=== PATIENT | female | born 1980 | race Caucasian/White ===

== ENCOUNTER 2016-08-07 14:40 | Inpatient (IN) | payer OTHER ==
[~2016-08-07] VITALS: Ht 160 cm; Wt 83.9 kg
[2016-08-07 15:48] VITALS: BP 131/74
[2016-08-07 17:15] LABS: ABSOLUTE BASOPHIL COUNT 0 /CUMM (0.0-0.2); ABSOLUTE EOSINOPHIL COUNT 0.1 /CUMM (0.0-0.7); ABSOLUTE GRANULOCYTE CT 9.3 /CUMM (1.4-6.5); ABSOLUTE MONOCYTE COUNT 0.9 /CUMM (0.10-0.60); BASOPHIL % 0.4 % (0.0-2.0); EOSINOPHIL % 0.8 % (0-5); GRANULOCYTE % 75.4 % (42.2-75.2); HEMATOCRIT 35.9 % (37-47); MEAN CORPUSCULAR HGB 32.1 PG (27.0-31.0); MEAN CORPUSCULAR HGB CONC 34.3 G/DL (33.0-37.0); MEAN CORPUSCULAR VOLUME 93.4 FL (81.0-99.0); MEAN PLATELET VOLUME 11.6 FL (7.4-10.4); PLATELET COUNT 211 /CUMM (130-400); RBC DISTRIBUTION WIDTH 13.9 % (11.5-14.5); RED BLOOD CELL CT 3.84 /CUMM (4.20-5.40); WHITE BLOOD CELL COUNT 12.4 /CUMM (4.8-10.8)
--- NOTE | 2016-08-07 22:57 | History & Physical ---
General Information and HPI MD Statement: I have seen and personally examined MONSERRAT BRIDGES and documented this H&P. The patient is a 36 year old female at 40 weeks gestation who presented with a chief complaint of ROM. 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 Now asking for epidural. 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 EENTM: Denies: blurred vision, double vision, visual changes. Cardiovascular: Denies: chest pain, palpitations. Respiratory: Denies: short of breath. GI: Denies: nausea, vomiting. Neurological/Psychological: Denies: anxiety, depressed. Exam & Diagnostic Data Last 24 Hrs of Vital Signs/I&O vss Vital Signs Date Time Temp Pulse Resp B/P Pulse O2 O2 Flow FiO2 Ox Delivery Rate 08/07 1548 131/74 Intake & Output 08/07 1600 08/07 0800 08/07 0000 Intake Total Output Total Balance Patient 185 lb Weight Obstetric Exam Wgt Gained During : 45# Pelvimetry: seems adequate Dilation (cm): 5 Effacement (%): 100 Station: -2 Membranes: SROM Fluid: light meconium Fundal Height (cm): 40 Multiple Gestation? No Contractions: Q4 min #1 - FHR Baseline: 125 Category: 1 Estimated Weight: 3800g Presentation: vtx Patient for Induction? No Physical Exam General Appearance Alert, Oriented X3, Cooperative, Mild Distress Cardiovascular Regular Rate Lungs Clear to Auscultation Abdomen Soft Neurological Normal Speech, Strength at 5/5 X4 Ext, Normal Tone, Reflexes 2+ Extremities No Edema Breasts implants Labs Blood Type & Rh: A pos Antibody Screen: neg Hct/Hgb & Platelets #1: 33.4/11.2/230 Hct/Hgb & Platelets #2: 33.8/10.9/256 Rubella: imm VDRL #1: NR VDRL #2: NR HbsAg: NR HIV #1: NR HIV #2 NR 1 Hr P Group B Strep: NEG Initial Ultrasound: 01/15/2016 10W 4D Anatomy Ultrasound: 03/23/2016 NORMAL Ultrasound for EFW: 06/17/2015 65%TILE Genetic Testing: INDETERMINANT FRAGIL X CARRIER NOT SIGNIFIGANT FOR THIS Last 24 Hrs of Labs/Tyson: Laboratory Tests 08/07/16 1800: Urine Color YEL, Urine Clarity HAZY H, Urine pH 6.5, Ur Specific [place] <= 1.005, Urine Protein NEG, Urine Ketones NEG, Urine Nitrite NEG, Urine Bilirubin NEG, Urine Urobilinogen 0.2, Ur Leukocyte Esterase NEG, Ur Microscopic SEDIMENT EXAMINED, Urine RBC FEW H, Urine WBC RARE, Ur Epithelial Cells PACKD H, Urine Hemoglobin SMALL H, Urine Glucose NEG 08/07/16 1615: CBC w Diff NO MAN DIFF REQ, RBC 3.84 L, MCV 93.4, MCH 32.1 H, RDW 13.9, MPV 11.6 H, Gran % 75.4 H, Lymphocytes % 16.1 L, Monocytes % 7.3, Eosinophils % 0.8, Basophils % 0.4, Absolute Granulocytes 9.3 H, Absolute Lymphocytes 2.0, Absolute Monocytes 0.9 H, Absolute Eosinophils 0.1, Absolute Basophils 0, PUBS MCHC 34.3 Assessment/Plan As Ranked By This Provider Problem List: 1. Core Measures/Miscellaneous Venous Thromboembolism VTE Risk Factors: / VTE Contraindications: No Contraindications VTE Diagnosis: No Beta Otto Is Beta Otto a Home Med? No Antibiotics Is Patient on Antibiotics? No Attending MD Review Statement Attending Statement Attending MD Statement: examined this patient, discussed with family, discussed w/nursing Attending Assessment/Plan: iup AT TERM srom THIN mEC PLAN epidural anasthesia EXPECTANT MANAGEMENT
--- NOTE | 2016-08-08 09:08 | PN- OBGYN ---
Subjective Subjective: feeling ok with epidural sleps some time Review of Systems Constitutional: Denies: chills, fever. EENTM: Denies: blurred vision, double vision, visual changes. Cardiovascular: Denies: chest pain, palpitations. Respiratory: Denies: short of breath. Gastrointestinal: Denies: nausea, vomiting. Neurological/Psychological: Denies: anxiety, depressed. Objective Last 24 Hrs of Vital Signs/I&O tmax 100.9 Vital Signs Date Time Temp Pulse Resp B/P Pulse O2 O2 Flow FiO2 Ox Delivery Rate 08/08 0552 100.8 08/07 1548 131/74 Physical Exam General Appearance Alert, Oriented X3, Cooperative, Mild Distress Cardiovascular Regular Rate Lungs Clear to Auscultation Abdomen Soft Obstetric Exam Dilation (cm): 8 Effacement (%): 90 Station: -1 Membranes: SROM Fluid: light meconium Multiple Gestation? No Contractions: q 3-4 MIN 120 mONTEVIDEO UNITS Infant #1 - FHR Baseline: 125 Category: 1 Estimated Weight: 3800g Presentation: vtx Current Medications: Current Medications Sig/Vera Start time Last Medication Dose Route Stop Time Status Admin Acetaminophen 1,000 MG ONCE ONE 08/08 06 DC 08/08 N/A 1 UNIT IV 08/08 0614 0552 Butorphanol Tartrate 1 MG Q4P PRN 08/07 2044 AC 08/07 IM 2036 Butorphanol Tartrate 1 MG Q4P PRN 08/07 204 AC 08/07 IV 203 Cefazolin Sodium 2 GM ONCE ONE 08/08 899 UNVr 08/08 N/A 1 UNIT IV 08/08 0929 0854 Lactated Ringer's 1,000 ML Q8H 08/07 1530 AC 08/08 IV 0552 Oxytocin 30 UNITS PER PROTOCL 08/08 09 UNVr 08/08 Lactated Ringer's 500 ML IV 0800 Last 24 Hrs of Labs/Tyson: Laboratory Tests 08/07/16 1800: Urine Color YEL, Urine Clarity HAZY H, Urine pH 6.5, Ur Specific [place] <= 1.005, Urine Protein NEG, Urine Ketones NEG, Urine Nitrite NEG, Urine Bilirubin NEG, Urine Urobilinogen 0.2, Ur Leukocyte Esterase NEG, Ur Microscopic SEDIMENT EXAMINED, Urine RBC FEW H, Urine WBC RARE, Ur Epithelial Cells PACKD H, Urine Hemoglobin SMALL H, Urine Glucose NEG 08/07/16 1615: CBC w Diff NO MAN DIFF REQ, RBC 3.84 L, MCV 93.4, MCH 32.1 H, RDW 13.9, MPV 11.6 H, Gran % 75.4 H, Lymphocytes % 16.1 L, Monocytes % 7.3, Eosinophils % 0.8, Basophils % 0.4, Absolute Granulocytes 9.3 H, Absolute Lymphocytes 2.0, Absolute Monocytes 0.9 H, Absolute Eosinophils 0.1, Absolute Basophils 0, PUBS MCHC 34.3 Assessment/Plan Assessment/Plan PT HAS BEEN 8 CM FOR SEVERAL HOURS WILL START PITOCIN SINCE CONTRACTIONS ARE SUB OPTIMAL WILL START ANTIBIOTS SINCE PT HAS ROM >18 HOURS AND LOW GRADE TEMP. Problem List: 1. Attending MD Review Statement Attending Statement Attending MD Statement: examined this patient, discussed with family, discussed w/nursing
--- NOTE | 2016-08-08 13:06 | Operative Report ---
Operative/Inv Procedure Report Surgery Date: 08/08/16 Name of Procedure: primary L/T C/S Pre-Operative Diagnosis: FTP Post-Operative Diagnosis: FTP and chorioamnionitis Estimated Blood Loss: 350 Surgeon/Carbon Furnace Operator: CHRISSY VALERIO,Bernard Mehta MD Anesthesia: general endotracheal tube Monitors: fhr 145 bpm Specimens: placenta and private cord collection Operative/Procedure Note Note: After the induction of general anesthesia the patient was placed in the left lateral tilt position Sanford catheter was placed and heart rate was noted to be 144 bpm after testing for adequacy of anesthesia a Pfannenstiel incision was made in the skin and carried down sharply to the fascia hemostasis was achieved with electrocautery. The Fascia was incised in the midline sharply and the incision was carried out laterally sharply. The fascia was divided from the underlying rectus muscles in the superior and inferior direction sharply. The rectus muscle bundles were divided in the midline sharply. A bladder flap was created on the lower uterine segment. The lower uterine segment was entered in the midline sharply and the incision was carried out laterally bluntly. Infant was delivered through thin meconium stained amnionic fluid vertex position atraumatically cord was doubly clamped and cut and the was handed to the pediatric attendant. The placenta was manually extracted and the interior of the uterus was wiped clean with wet laps. The uterus was externalized. The uterine incision was closed in 2 layers the first a running locking stitch the second an imbricating over the first 0 Polysorb sutures were used after checking for hemostasis the uterus was returned to its normal anatomic position the abdominal/perineal cavity was irrigated copiously once again the uterus was checked for hemostasis which was judged to be excellent. Because of excessive bogginess the pt was given one dose of methergine followed by one amp of Henabate with good results.The parietal peritoneum was reapproximated in a simple running fashion with 0 Polysorb suture, subfascial planes were checked for hemostasis which was judged to be excellent. Fascia was then closed with 2 simple running sutures overlapping in the midline. Subcuticular tissues were irrigated copiously and hemostasis was achieved with electrocautery. A subcuticular Emi's fascia which was placed in a simple running fashion of 2-0 Polysorb. The skin was closed with memo. Her uterus was expressed of a small amount of blood. The only drain left at the end of the procedure was a Sanford catheter.
--- NOTE | 2016-08-08 13:09 | PN- OBGYN ---
Surgical Brief Attending Note Brief Attending Note: Pt examined now after more than one hour of adequate contractions with an IUP catheter on pitocin there was no cervical change therefore a primary C/S was planned
[2016-08-09 06:38] LABS: ABSOLUTE BASOPHIL COUNT 0 /CUMM (0.0-0.2); ABSOLUTE EOSINOPHIL COUNT 0.1 /CUMM (0.0-0.7); ABSOLUTE GRANULOCYTE CT 19.9 /CUMM (1.4-6.5); ABSOLUTE LYMPH COUNT 1.6 /CUMM (1.2-3.4); ABSOLUTE MONOCYTE COUNT 1.2 /CUMM (0.10-0.60); BASOPHIL % 0 % (0.0-2.0); EOSINOPHIL % 0.3 % (0-5); GRANULOCYTE % 87.6 % (42.2-75.2); MEAN CORPUSCULAR HGB CONC 33.5 G/DL (33.0-37.0); MEAN CORPUSCULAR VOLUME 95.5 FL (81.0-99.0); MEAN PLATELET VOLUME 11.1 FL (7.4-10.4); PLATELET COUNT 163 /CUMM (130-400); RBC DISTRIBUTION WIDTH 13.9 % (11.5-14.5); RED BLOOD CELL CT 2.94 /CUMM (4.20-5.40)
[2016-08-09 07:01] LABS: WHITE BLOOD CELL COUNT 22.7 /CUMM (4.8-10.8)
--- NOTE | 2016-08-09 09:00 | PN- Post Delivery/GYN ---
Subjective Subjective: feeling ok c/o incisional pain Review of Systems Constitutional: Denies: chills, fever. EENTM: Denies: blurred vision, double vision. Cardiovascular: Denies: chest pain, edema, palpitations. Respiratory: Denies: cough, short of breath. Gastrointestinal: Denies: diarrhea, nausea, vomiting. Genitourinary: Denies: dysuria, frequency. Musculoskeletal: Denies: back pain. Neurological/Psychological: Denies: depressed, headache, paresthesia. Objective Last 24 Hrs of Vital Signs/I&O vss Vital Signs Date Time Temp Pulse Resp B/P Pulse O2 O2 Flow FiO2 Ox Delivery Rate 08/08 1705 Room Air 08/08 1514 99.1 08/08 1240 102.8 Physical Exam General Appearance Alert, Oriented X3, Cooperative, Mild Distress Cardiovascular Regular Rate Lungs Clear to Auscultation Abdomen Soft, incision clean and dry Neurological Normal Speech, Normal Tone Extremities 1+ pedal Pelvic (FEMALE) lochia sanganous Current Medications: Current Medications Sig/Vera Start time Last Medication Dose Route Stop Time Status Admin Acetaminophen 1,000 MG ONCE ONE 08/08 1300 DC 08/08 N/A 1 UNIT IV 08/08 1314 1240 Acetaminophen 650 MG Q4P PRN 08/08 1245 AC PO Bisacodyl 10 MG DAILY NEEDED PRN 08/08 1245 AC DE Butorphanol Tartrate 1 MG Q4P PRN 08/07 2045 DC 08/07 IM 203 Butorphanol Tartrate 1 MG Q4P PRN 08/07 2045 DC 08/07 IV 2037 Carboprost 250 MCG .[STAT] 08/08 1245 DC Tromethamine IM 08/08 1246 Cefazolin Sodium 1,000 MG .STK-MED ONE 08/08 1058 DC IM 08/08 1059 Cefazolin Sodium 2 GM ONCE ONE 08/08 0900 DC 08/08 N/A 1 UNIT IV 08/08 0929 0854 Citric Acid/Sodium 30 ML ONE TIME CBC 08/08 1045 DC 08/08 Citrate PO 08/08 1100 1038 Dextrose/Lactated 1,000 ML Q8H 08/08 1245 AC 08/09 Ringer's IV 0223 Diphenhydramine HCl 50 MG Q6P PRN 08/08 1245 AC IM Fentanyl Citrate 100 MCG .STK-MED ONE 08/08 1047 DC IM 08/08 1048 Hydromorphone HCl 50 MG Q24H PRN 08/08 1415 AC 08/08 Sodium Chloride 45 ML IV 1500 Hydroxyzine HCl 50 MG AT BEDTIME NEED.. 08/09 0000 AC PO 08/12 0001 Ibuprofen 600 MG Q6P PRN 08/08 1245 AC PO Ibuprofen 800 MG Q6P PRN 08/08 1245 AC PO Ketorolac 30 MG ONCE PRN 08/09 0545 AC 08/09 Tromethamine IV 0540 Ketorolac 30 MG ONCE PRN 08/08 2230 AC 08/08 Tromethamine IV 2232 Lactated Ringer's 1,000 ML Q8H 08/07 1530 DC 08/08 IV 0552 Magnesium Hydroxide 30 ML DAILY NEEDED PRN 08/08 1245 AC PO 08/11 1246 Methylergonovine 0.2 MG .[STAT] 08/08 1245 DC Maleate IM 08/08 1246 Midazolam HCl 5 MG .STK-MED ONE 08/08 1047 DC IM 08/08 1048 Morphine Sulfate 10 MG .STK-MED ONE 08/08 1048 DC IV 08/08 1049 Naloxone HCl 0.2 MG .[STAT] 08/08 1245 DC IV 08/08 1246 Oxycodone/ 1 TAB Q4P PRN 08/08 1245 AC Acetaminophen PO Oxycodone/ 2 TAB Q4P PRN 08/08 1245 AC Acetaminophen PO Oxytocin 20 UNITS Q8H 08/08 1245 DC 08/08 Lactated Ringer's 1,000 ML IV 08/08 2044 1225 Oxytocin 10 UNITS .STK-MED ONE 08/08 0955 DC IM 08/08 0956 Oxytocin 30 UNITS PER PROTOCL 08/08 0900 DC 08/08 Lactated Ringer's 500 ML IV 0800 Promethazine HCl 25 MG Q4P PRN 08/08 1245 AC IM 08/09 1244 Promethazine HCl 50 MG Q4P PRN 08/08 1245 AC IM 08/09 1244 Last 24 Hrs of Labs/Tyson: Laboratory Tests 08/09/16 0600: CBC w Diff NO MAN DIFF REQ, RBC 2.94 L, MCV 95.5, MCH 32.0 H, RDW 13.9, MPV 11.1 H, Gran % 87.6 H, Lymphocytes % 7.0 L, Monocytes % 5.1, Eosinophils % 0.3, Basophils % 0 L, Absolute Granulocytes 19.9 H, Absolute Lymphocytes 1.6, Absolute Monocytes 1.2 H, Absolute Eosinophils 0.1, Absolute Basophils 0, PUBS MCHC 33.5 Microbiology 08/08 1237 URINE ROUT: Urine Culture - COLB Assessment/Plan Assessment/Plan pod#1 vss afebrile plan AMBULATE Problem List: 1. Attending MD Review Statement Attending Statement Attending MD Statement: examined this patient, discussed with family, discussed with nursing
--- NOTE | 2016-08-10 09:18 | PN- OBGYN ---
Surgical Brief Attending Note Brief Attending Note: POD#2 pt is resting in bed, no complaints. tolerate diet, void without difficutlties, flatus(+) PE: VSS CV RRR lungs CTA B/L Abdomen: soft, nontender, uterus firm, fundus below umbilicus, incision D/C/I, lochia mild. Ext: DCT (-) A/P: 36 yo, s/p PLTCS, POD#2 1. encourage ambulation, encourage 2. RT PP care
[2016-08-10 13:54] LABS: ABSOLUTE BASOPHIL COUNT 0 /CUMM (0.0-0.2); ABSOLUTE EOSINOPHIL COUNT 0.2 /CUMM (0.0-0.7); ABSOLUTE LYMPH COUNT 1.8 /CUMM (1.2-3.4); ABSOLUTE MONOCYTE COUNT 0.8 /CUMM (0.10-0.60); BASOPHIL % 0.2 % (0.0-2.0); GRANULOCYTE % 82.3 % (42.2-75.2); HEMATOCRIT 30.7 % (37-47); MEAN CORPUSCULAR HGB 31.9 PG (27.0-31.0); MEAN CORPUSCULAR VOLUME 93.9 FL (81.0-99.0); MEAN PLATELET VOLUME 10.4 FL (7.4-10.4); PLATELET COUNT 231 /CUMM (130-400); RBC DISTRIBUTION WIDTH 13.8 % (11.5-14.5); RED BLOOD CELL CT 3.27 /CUMM (4.20-5.40); WHITE BLOOD CELL COUNT 15.8 /CUMM (4.8-10.8)
[2016-08-11] MEDS ORDERED: PERCOCET 5-3251 EACH PO (09:02)
[2016-08-11] MEDS ORDERED: IBUPROFEN800 M1 PO (09:02)
--- NOTE | 2016-08-11 09:05 | PN- Post Delivery/GYN ---
Subjective Subjective: feeling well Review of Systems Constitutional: Reports: no symptoms. Denies: chills, fever. EENTM: Denies: blurred vision, double vision, visual changes. Cardiovascular: Denies: chest pain. Respiratory: Denies: cough, short of breath. Gastrointestinal: Denies: diarrhea, nausea, vomiting. Neurological/Psychological: Denies: anxiety, depressed. Objective Last 24 Hrs of Vital Signs/I&O vss afebrile Physical Exam General Appearance Alert, Oriented X3, Cooperative, Mild Distress Skin No Rashes, No Breakdown Cardiovascular Regular Rate Lungs Clear to Auscultation Abdomen Soft, incision clean and dry memo removed, fundus firm Pelvic (FEMALE) lochia serosanganous Current Medications: Current Medications Sig/Vera Start time Last Medication Dose Route Stop Time Status Admin Acetaminophen 650 MG Q4P PRN 08/08 1245 AC PO Bisacodyl 10 MG DAILY NEEDED PRN 08/08 1245 AC 08/09 OH 2208 Dextrose/Lactated 1,000 ML Q8H 08/08 1245 AC 08/09 Ringer's IV 0223 Diphenhydramine HCl 50 MG Q6P PRN 08/08 1245 AC IM Docusate Sodium 100 MG BID PRN 08/10 0015 AC 08/10 PO 2003 Hydromorphone HCl 50 MG Q24H PRN 08/08 1415 AC 08/08 Sodium Chloride 45 ML IV 1500 Hydroxyzine HCl 50 MG AT BEDTIME NEED.. 08/09 0000 AC PO 08/12 0001 Ibuprofen 800 MG .STK-MED ONE 08/10 1954 DC PO 08/10 1955 Ibuprofen 800 MG .STK-MED ONE 08/10 1405 DC PO 08/10 1406 Ibuprofen 600 MG Q6P PRN 08/08 1245 PO Ibuprofen 800 MG Q6P PRN / 1245 AC 08/11 PO 0349 Ketorolac 30 MG ONCE PRN 08/09 0545 AC 08/09 Tromethamine IV 0540 Ketorolac 30 MG ONCE PRN 08/08 2230 AC 08/08 Tromethamine IV 2232 Magnesium Hydroxide 30 ML DAILY NEEDED PRN 08/08 1245 AC PO 08/11 1246 Oxycodone/ 1 TAB Q4P PRN 08/08 1245 AC 08/09 [place] 0935 Oxycodone/ 2 TAB Q4P PRN 08/08 1245 AC 08/11 Acetaminophen PO 0852 Simethicone 80 MG Q4P PRN 08/10 0015 AC 08/10 PO 2002 Last 24 Hrs of Labs/Tyson: Laboratory Tests 08/10/16 1255: CBC w Diff NO MAN DIFF REQ, RBC 3.27 L, MCV 93.9, MCH 31.9 H, RDW 13.8, MPV 10.4, Gran % 82.3 H, Lymphocytes % 11.4 L, Monocytes % 5.1, Eosinophils % 1.0, Basophils % 0.2, Absolute Granulocytes 13.0 H, Absolute Lymphocytes 1.8, Absolute Monocytes 0.8 H, Absolute Eosinophils 0.2, Absolute Basophils 0, PUBS MCHC 34.0 Assessment/Plan Assessment/Plan POD 3 VSS AFEBRILE PLAN d/c home Problem List: 1. Attending MD Review Statement Attending Statement Attending MD Statement: examined this patient, discussed with family, discussed with nursing
--- NOTE | 2016-09-03 12:21 | Surgical Discharge Summary ---
Visit Information Visit Dates Admission Date: 08/07/16 Discharge Date: 08/11/16 History of Present Illness Chief Complaint: labor Surgical History Pertinent Surgical History: none Psychosocial History What is Your Primary Language? Bolivian Review of Systems: Patient denies nausea, vomiting, diarrhea, constipation, fevers, or chills. Hospital Course Course Attending Physician: CHRISSY VALERIO,BEVERLY Bah Primary Care Physician: RENE VALERIO,DUNG Eason Hospital Course: The patient underwent a primary section for FTP and chorioamniatis with no complications. By postoperative day #1 the Sanford catheter was discontinued the patient was ambulating she was started on a clear liquid diet and was being toward well baby care as well as nursing. By postoperative day #2 the patient was tolerating a regular diet therefore her intravenous was discontinued. She was voiding well her incision was clean and dry she was demonstrating good knowledge of the incision care. Therefore she was discharged home on postoperative day #3 Allergies: Coded Allergies: No Known Allergies (08/07/16) Disposition Summary Disposition Principal Diagnosis: Primary section Additional Diagnosis: failure to progress Discharge Disposition: home or self care Discharge Instructions General Discharge Information Code Status: Full Code Patient's Diet: Regular Patient's Activity: no Heavy lifting pelvic rest Follow-Up Instructions/Appts: call Immediately for any fevers chills abdominal pain or leaking from the wound. call Immediately for any headaches or visual changes or epigastric pain Medications at Discharge Discharge Medications: Start taking the following new medications: Ibuprofen (Ibuprofen) 800 MG TABLET 800 Milligram ORAL EVERY SIX HOURS NEEDED as needed for SEVERE UTERINE CRAMPING Qty = 90 No Refills Comments: Last Taken:08/11/16 Time:0930 Oxycodone HCl/Acetaminophen (Percocet 5-325 MG Tablet) 5 MG-325 MG TABLET 2 Tablet ORAL EVERY 4 HOURS NEEDED as needed for PAIN SCALE 7-10 (SEVERE) Qty = 60 No Refills Comments: Last Taken:08/11/16 Time:0830 Attending MD Review Statement Attending Statement Attending MD Statement: examined this patient, discussed with family, discussed w/nursing
== END 2016-08-11 11:12 | DRG 540 ==
LOC: CBCO 14:40 → GNO 15:17
PROVIDERS: ADMIT Obstetrics & Gynecology
PROC: 10D00Z1 Extraction of Products of Conception, Low, Open Approach (ICD-10-PCS; principal; 2016-08-08)
DX: O62.2 Other uterine inertia (principal); O41.1230 Chorioamnionitis, third trimester, not applicable or unspecified; Z3A.40 40 weeks gestation of pregnancy; Z37.0 Single live birth
CPT/HCPCS: GNOP; GNOS; 36415; 59025; 81001; 84112; 87086; 88307; J0131; J0595; J0690; J1170; J1200; J1885; J2210; J7120